=== PATIENT | female | born 1985 | race Caucasian/White ===

== ENCOUNTER → 2022-08-11 08:37 | Outpatient (CLI) | payer OTHER, SELFPAY ==
--- NOTE | ~2022-08-11 | MR_ITS ---
MRI of the right knee Clinical history: Pain Technique: Coronal proton density and proton density-weighted images, sagittal proton-density and T2 fat-sat images, and axial proton-density fat-saturated images were acquired. Findings: Anterior and posterior cruciate ligaments are intact. Medial collateral ligament and the la teral collateral ligament complex are intact. Popliteus tendon is intact. Medial meniscus is intact, without evidence of tear. Anterior horn and body segment of the lateral me niscus are essentially completely absent, consistent with complex tearing. There is patchy moderate chondromalacia of the lateral compartment. There is patchy moderate chondrom alacia of the medial femoral condyle. There is a grade 4 chondral fissure at the central aspect of th e femoral trochlea. There is patchy moderate chondromalacia over the lateral patellar facet. Tricompa rtmental osteophytes are present. Extensor mechanism is intact. No significant joint effusion or Jin's cyst. Impression: Extensive complex tearing of the anterior horn and body segment of the lateral meniscus. Moderate tricompartmental osteoarthritis, as detailed above. Reviewed, dictated and finalized at location M. Impression: Extensive complex tearing of the anterior horn and body segment of the lateral meniscus. Moderate tricompartmental osteoarthritis, as detailed above.
== END ==
PROVIDERS: PCP Internal Medicine
DX: M17.11 Unilateral primary osteoarthritis, right knee (principal); S83.281A Other tear of lateral meniscus, current injury, right knee, initial encounter; X58.XXXA Exposure to other specified factors, initial encounter
CPT/HCPCS: 73721